=== PATIENT | male | born 1980 ===

== ENCOUNTER 2024-04-06 04:53 | Emergency (ER) | payer BC ==
[2024-04-06] MEDS ORDERED: ONDANSETRON 4 MG/2 ML VIAL ONE ×2 (05:15→08:48)
[2024-04-06] MEDS ORDERED: NA CHLORIDE 0.9% 1,000 ML ONE (05:15)
[2024-04-06] MEDS ORDERED: PANTOPRAZOLE 40 MG INJ ONE (05:32)
[2024-04-06] MEDS ORDERED: LORazepam 2 MG/ML VIAL ONE (05:33)
[2024-04-06 05:41] LABS: Absolute Basophils 0.1 K/uL (0-0.5); Absolute Lymphocytes (CBC) 3.2 K/uL (0.7-4.9); Absolute Monocytes 0.6 K/uL (0.1-1.3); Basophils % 0.8 % (0-1.3); Eosinophils % 0.4 % (0-4.4); Hematocrit 42.1 % (39.6-49.0); Lymphocytes % 45.9 % (15.3-44.8); MCH 30.7 pg (27.0-35.0); MCHC 33.1 g/dL (32.0-36.0); MCV 92.7 fL (80-100); MPV 8.3 fL (7.6-11.3); Monocytes % 8.6 % (3.3-12.3); Neutrophils % 44.3 % (41.7-73.7); Nucleated Red Blood Cells % 0.3 % (0-0); Platelets 244 thou/uL (152-406); RBC Red Blood Cell Count 4.54 M/uL (4.33-5.43); Red Cell Distribution Width 16.5 % (12.1-15.2)
[2024-04-06 06:03] LABS: Albumin 3.3 g/dL (3.4-5.0); Albumin/Globulin Ratio 0.7 (1.1-1.8); Anion Gap 18.6 mEq/L (5.0-15.0); Bilirubin Total 0.7 mg/dL (0.2-1.0); Globulin 4.5 g/dL (2.3-3.5); Potassium 3.6 mEq/L (3.5-5.1); Protein, Total 7.8 g/dL (6.4-8.2)
--- NOTE | 2024-04-06 06:42 | ER ---
Nurse's Notes [facility] Name: Alvin Cristobal Age: 43 yrs Sex: Male : 1980 Arrival Date: 04/06/2024 Time: 04:53 Bed 3 Private MD: Diagnosis: Hematemesis;Alcohol withdrawal Presentation: 04/06 05:21 Chief complaint: Patient states: vomiting blood since yesterday , drinks heavily, about iw 1 liter per day, last drink was an hour ago. Coronavirus screen: Client presents with at least one sign or symptom that may indicate coronavirus-19. Ebola Screen: No symptoms or risks identified at this time. Initial Sepsis Screen: Does the patient meet any 2 criteria? HR > 90 bpm. Does the patient have a suspected source of infection? No. Patient's initial sepsis screen is negative. Risk Assessment: Do you want to hurt yourself or someone else? Patient reports no desire to harm self or others. Onset of symptoms was April 05, 2024. 05:21 Method Of Arrival: Ambulatory iw 05:21 Acuity: DAIANA 2 iw Historical: - Allergies: 05:22 No Known Allergies; iw - Home Meds: 05:22 None [Active]; iw - PMHx: 05:22 None; iw - PSHx: 05:22 None; iw - Immunization history:: Adult Immunizations up to date. - Infectious Disease History:: Denies. - Social history:: Smoking status: Patient reports the use of cigarette tobacco products, Patient uses alcohol, on a daily basis. - Family history:: not pertinent. Screenin:20 [facility] ED Fall Risk Assessment (Adult) History of falling in the last 3 months, jj7 including since admission No falls in past 3 months (0 pts) Confusion or Disorientation No (0 pts) Intoxicated or Sedated No (0 pts) Impaired Gait Yes (1 pt) Mobility Assist Device Used No (0 pt) Altered Elimination No (0 pt) Score/Fall Risk Level 0 - 2 = Low Risk Oriented to surroundings, Maintained a safe environment, Educated pt \T\ family on fall prevention, incl call for assistance when getting out of bed, Assessed \T\ reinforced patient's understanding of fall precautions. Abuse screen: Denies injuries from another. Nutritional screening: No deficits noted. Tuberculosis screening: No symptoms or risk factors identified. Assessment: 05:21 General: Appears uncomfortable, ill, Behavior is cooperative. Pain: Complains of pain iw in chest. Neuro: Level of Consciousness is awake, alert, obeys commands, Oriented to person, place, time, situation, Moves all extremities. Full function. Cardiovascular: Reports chest pain, Patient's skin is warm and dry. Respiratory: Airway is patent Respiratory effort is even, unlabored, Respiratory pattern is regular, symmetrical. GI: Abdomen is non-distended, Reports nausea, vomiting. Derm: Skin is intact, is healthy with good turgor. Musculoskeletal: Range of motion: intact in all extremities. 05:30 Reassessment: Patient appears in no apparent distress at this time. pt reports nausea iw has improved. 05:49 Reassessment: pt placed on 2 L NC, pt sleeping, lights dimmed, no episodes of vomiting. iw 06:39 Reassessment: Patient appears in no apparent distress at this time. Patient and/or iw family updated on plan of care and expected duration. Pain level reassessed. Patient is alert, oriented x 3, equal unlabored respirations, skin warm/dry/pink. Dr. Carbajal at bedside to update pt on POC. 08:05 Reassessment: REPORT TO ELVIN CHAVARRIA AT [facility] FOR RM 401. bp 08:40 Reassessment: TRANSPORT AT B/S. bp Vital Signs: 05:21 BP 149 / 105; Pulse 133; Resp 19; Pulse Ox 95% on R/A; iw 05:46 BP 116 / 79; Pulse 122; Resp 18; Temp 97.6; Pulse Ox 91% on R/A; iw 05:49 Pulse Ox 96% on 2 lpm NC; iw 06:06 BP 111 / 78; Pulse 115; Resp 14; Pulse Ox 95% on 2 lpm NC; iw 08:01 BP 115 / 91; Pulse 106; Resp 13; Pulse Ox 96% ; aa5 ED Course: 04:57 Patient arrived in ED. gm2 05:01 Levi Carbajal MD is Attending Physician. rt 05:20 Patient has correct armband on for positive identification. Bed in low position. Call jj7 light in reach. Provided Education on: USE OF CALL MONTES. Client placed on continuous cardiac and pulse oximetry monitoring. NIBP monitoring applied. order processor on. Warm blanket given. 05:20 Inserted saline lock: 20 gauge in left antecubital area, using aseptic technique. Blood iw collected. Flushed with 10 mL NS. 05:21 Sharon Ly, RN is Primary Nurse. iw 05:22 Triage completed. iw 05:22 Arm band placed on. iw 06:25 CT Abd/Pelvis - IV Contrast Only In Process Unspecified. EDMS 06:27 initiated a transfer with Cecilia Barfield from the [facility]. eb 07:01 Report given to JOSE CHAVARRIA. jj7 07:12 Attending Physician role handed off by Levi Carbajal MD rn 07:12 Santana Burgos MD is Attending Physician. rn 07:13 connected the hospitalist content strategy lead for [facility] with Dr. Burgos for patient eb transfer consultation. 07:22 administrative approval given by Karla French Rn/ patient has been accepted to [facility] room 401/ Dr. Christian Romano has accepted the patient in transfer/ report to be called to [phone]. 07:35 Primary Nurse role handed off by Sharon Ly RN eb 07:36 Richard Copeland, RN is Primary Nurse. bp 08:05 No provider procedures requiring assistance completed. Patient transferred, IV remains bp in place. Administered Medications: 05:20 Drug: NS 0.9% IV 1000 ml IV at 1 bolus Per protocol; 1000 mL bolus Route: IV; Rate: 1 jj7 bolus; Site: left antecubital; 08:06 Follow up: IV Status: Completed infusion; IV Intake: 1000ml bp 05:20 Drug: Ondansetron IVP 4 mg IVP once; over 2 minutes Route: IVP; Site: left antecubital; jj7 05:41 Follow up: Response: Marked relief of symptoms; Nausea is decreased jj7 05:41 Drug: Pantoprazole IVP 80 mg IVP once Route: IVP; Site: left antecubital; jj7 06:17 Follow up: Response: Marked relief of symptoms jj7 05:41 Drug: Ativan IVP 2 mg IVP once Route: IVP; Site: left antecubital; jj7 06:17 Follow up: Response: Marked relief of symptoms jj7 08:52 Drug: Ondansetron IVP 4 mg IVP once; over 2 minutes Route: IVP; Site: left antecubital; aa5 08:52 Follow up: Response: No adverse reaction; Medication Administered at Departure aa5 Medication: 08:06 VIS not applicable for this client. bp Intake: 08:06 IV: 1000ml; Total: 1000ml. bp Outcome: 06:41 ER care complete, transfer ordered by . rt 08:05 Transferred by ground EMS to [facility], Transfer form completed. bp 08:05 Condition: stable 08:05 Instructed on the need for transfer, 08:52 Patient left the ED. aa5 Signatures: Dispatcher [employer] EDMS Sharon Ly RN RN iw Santana Burgos MD MD rn Calderon, Audri, RN RN aa5 Richard Copeland RN RN bp Botello, Elizabeth eb Johnson, Juwairiyah, RN RN jj7 Levi Carbajal MD MD rt Lisa De Los Santos 2 Corrections: (The following items were deleted from the chart) 05:50 05:20 Inserted saline lock: 20 gauge in right antecubital area, using aseptic iw technique. Blood collected. Flushed with 10 mL NS jj7 07:34 07:32 administrative approval given by Karla French Rn/ patient has been accepted to [facility] room 401/ Dr. Christian Romano has accepted the patient in transfer/ report to be called to [phone] 08:52 08:40 Patient left the ED. bp aa5
--- NOTE | 2024-04-06 06:42 | EDPHYS ---
Physician Documentation [facility] Name: Alvin Cristobal Age: 43 yrs Sex: Male : 1980 Arrival Date: 04/06/2024 Time: 04:53 Bed 3 Private MD: ED Physician Santana Burgos HPI: 04/06 06:13 This 43 yrs old Male presents to ER via Ambulatory with complaints of VOMITING BLOOD. rt 06:13 Patient who drinks a liter of vodka daily presents to the ED with nausea, vomiting. rt Patient reports vomiting dark blood, subsequently coffee-ground emesis. Denies hematochezia, melena. Denies abdominal pain. Does report some tremulousness, states last drink was several hours ago. Denies other acute complaints at this time, symptoms are moderate in severity, no other aggravating or elevating factors. Historical: - Allergies: 05:22 No Known Allergies; iw - Home Meds: 05:22 None [Active]; iw - PMHx: 05:22 None; iw - PSHx: 05:22 None; iw - Immunization history:: Adult Immunizations up to date. - Infectious Disease History:: Denies. - Social history:: Smoking status: Patient reports the use of cigarette tobacco products, Patient uses alcohol, on a daily basis. - Family history:: not pertinent. ROS: 06:13 Constitutional: Negative for fever, chills, and weight loss, Cardiovascular: Negative rt for chest pain, palpitations, and edema, Respiratory: Negative for shortness of breath, cough, wheezing, and pleuritic chest pain, MS/Extremity: Negative for injury and deformity, Skin: Negative for injury, rash, and discoloration, 06:13 Abdomen/GI: Positive for Coffee-ground emesis, nausea, vomiting, denies abdominal pain, Exam: 06:13 Constitutional: This is a well developed, well nourished patient who is awake, alert, rt and in no acute distress. Head/Face: Normocephalic, atraumatic. Chest/axilla: Normal chest wall appearance and motion. Nontender with no deformity. No lesions are appreciated. Cardiovascular: Regular rate and rhythm with a normal S1 and S2. No gallops, murmurs, or rubs. Normal PMI, no JVD. No pulse deficits. Respiratory: Lungs have equal breath sounds bilaterally, clear to auscultation and percussion. No rales, rhonchi or wheezes noted. No increased work of breathing, no retractions or nasal flaring. Skin: Warm, dry with normal turgor. Normal color with no rashes, no lesions, and no evidence of cellulitis. MS/ Extremity: Pulses equal, no cyanosis. Neurovascular intact. Full, normal range of motion. Neuro: Awake and alert, GCS 15, oriented to person, place, time, and situation. Cranial nerves II-XII grossly intact. Motor strength 5/5 in all extremities. Sensory grossly intact. Cerebellar exam normal. Normal gait. 06:13 ECG was reviewed by the Attending Physician. Vital Signs: 05:21 BP 149 / 105; Pulse 133; Resp 19; Pulse Ox 95% on R/A; iw 05:46 BP 116 / 79; Pulse 122; Resp 18; Temp 97.6; Pulse Ox 91% on R/A; iw 05:49 Pulse Ox 96% on 2 lpm NC; iw 06:06 BP 111 / 78; Pulse 115; Resp 14; Pulse Ox 95% on 2 lpm NC; iw 08:01 BP 115 / 91; Pulse 106; Resp 13; Pulse Ox 96% ; aa5 MDM: 05:20 Patient medically screened. rt 06:41 Differential Diagnosis Bleeding ulcer, variceal bleed, alcohol withdrawal. Data rt reviewed: vital signs. Consideration of Admission/Observation Escalation of care including admission/observation considered. Patient requires transfer for GI coverage. I considered the following discharge prescriptions or medication management in the emergency department Medications were administered in the Emergency Department. See MAR. Independent interpretation of the following test(s) in the Emergency Department CT Scan: My interpretation is No free air seen on my interpretation of CT scan images. Care significantly affected by the following Social Determinants of Health: Misuse of alcohol and/or drugs. Counseling: I had a detailed discussion with the patient and/or guardian regarding the historical points, exam findings, and any diagnostic results supporting the discharge/admit diagnosis, lab results, radiology results, the need to transfer to another facility. Response to treatment: the patient's symptoms have markedly improved after treatment. 07:15 ED course: Pt accepted for transfer to [facility] for hematemesis and mild ETOH rn withdrawal. . 04/06 05:28 Order name: CBC with Diff; Complete Time: 07:13 rt 04/06 05:28 Order name: CMP; Complete Time: 06:19 rt 04/06 05:28 Order name: Lipase; Complete Time: 06:19 rt 04/06 05:28 Order name: CPK; Complete Time: 06:19 rt 04/06 05:33 Order name: ETOH Level; Complete Time: 06:19 rt 04/06 05:44 Order name: CBC Smear Scan; Complete Time: 07:13 EDMS 04/06 05:28 Order name: CT Abd/Pelvis - IV Contrast Only; Complete Time: 06:49 rt 04/06 05:28 Order name: EKG; Complete Time: 05:29 rt 04/06 05:28 Order name: IV Saline Lock; Complete Time: 05:29 rt 04/06 05:28 Order name: Labs collected and sent; Complete Time: 05:29 rt 04/06 05:28 Order name: EKG - Nurse/Tech; Complete Time: 05:30 rt EC:13 Rate is 125 beats/min. Rhythm is regular, Sinus tachycardia with No ectopy. QRS [place] is rt Normal. [place] interval is normal. QRS interval is normal. QT interval is normal. No Q waves. T waves are Normal. No ST changes noted. Interpreted by me. Administered Medications: 05:20 Drug: NS 0.9% IV 1000 ml IV at 1 bolus Per protocol; 1000 mL bolus Route: IV; Rate: 1 jj7 bolus; Site: left antecubital; 08:06 Follow up: IV Status: Completed infusion; IV Intake: 1000ml bp 05:20 Drug: Ondansetron IVP 4 mg IVP once; over 2 minutes Route: IVP; Site: left antecubital; jj7 05:41 Follow up: Response: Marked relief of symptoms; Nausea is decreased jj7 05:41 Drug: Pantoprazole IVP 80 mg IVP once Route: IVP; Site: left antecubital; jj7 06:17 Follow up: Response: Marked relief of symptoms jj7 05:41 Drug: Ativan IVP 2 mg IVP once Route: IVP; Site: left antecubital; jj7 06:17 Follow up: Response: Marked relief of symptoms jj7 08:52 Drug: Ondansetron IVP 4 mg IVP once; over 2 minutes Route: IVP; Site: left antecubital; aa5 08:52 Follow up: Response: No adverse reaction; Medication Administered at Departure aa5 Disposition Summary: 04/06/24 06:41 Transfer Ordered Notes: Transfer Location: [facility] rt Reason: Higher level of care rt Condition: Fair rt Problem: new rt Symptoms: have improved rt Accepting Physician: (04/06/24 08:52) aa5 Diagnosis - Hematemesis rt - Alcohol withdrawal rt Forms: - Medication Reconciliation Form rt - SBAR form rt Critical care time excluding procedures: 06:41 Critical care time: Bedside Care: 30 minutes, Consultation: 5 minutes. Total time: 35 rt minutes Signatures: Dispatcher [employer] EDSharon Siu RN RN iw Nieto, Roman, MD MD rn Calderon, Audri, RN RN aa5 Richard Copeland RN RN bp Johnson, Juwairiyah, RN RN jj7 Levi Carbajal MD MD rt Corrections: (The following items were deleted from the chart) 05:29 05:29 CBC+H.LAB.BRZ ordered. EDMS EDMS 05:29 05:29 COMPREHENSIVE METABOLIC PANEL+C.LAB.BRZ ordered. EDMS EDMS 05:29 05:29 LIPASE+C.LAB.BRZ ordered. EDMS EDMS 05:29 05:29 CREATINE PHOSPHOKINASE+C.LAB.BRZ ordered. EDMS EDMS 08:40 06:41 rt bp 08:52 08:40 bp aa5
--- NOTE | 2024-04-06 06:48 | RAD REPORT ---
EXAMINATION: CT ABDOMEN AND PELVIS WITH CONTRAST CLINICAL INDICATION: Male, 43 years old. [facility] MAIN ABD PAIN IV ONLY Bed Name: 3 TECHNIQUE: CT abdomen and pelvis was performed, after the administration of IV contrast, as per [facility] protocol. Axial, sagittal and coronal reconstructions were obtained. One or more of the following dose reduction techniques were used: Automated exposure control, adjustment of the mA and/o r kV according to patient size, and/or iterative reconstruction. Unless otherwise specified, incidental findings do not require dedicated imaging follow-up. [id number]. COMPARISON: No prior exam. FINDINGS: LOWER CHEST: Moderate hiatal hernia. Lungs clear LIVER: Hepatic steatosis. GALLBLADDER/BILE DUCT: Cholelithiasis.?No CT evidence of acute cholecystitis. PANCREAS: No mass, ductal dilation, or jag-pancreatic fluid. SPLEEN: Normal size. No focal lesion. 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 KIDNEYS AND URETERS: Normal size and contour. No hydronephrosis. URINARY BLADDER: Normal contour. GASTROINTESTINAL TRACT: Stomach is non-dilated. Small bowel has normal course and caliber. No colonic wall thickening or pericolonic inflammatory changes. Normal appendix. PERITONEUM: No ascites. LYMPH NODES: No lymphadenopathy. ABDOMINAL AORTA AND OTHER VESSELS: Normal caliber aorta and IVC. REPRODUCTIVE ORGANS: No pathologic process MUSCULOSKELETAL: No acute or suspicious osseous abnormality. Fusion hardware across the pubic symphys is and left SI joint.. Intramedullary steven of the right femur. ADDITIONAL FINDINGS: None. IMPRESSION: No acute or significant abnormalities seen in the abdomen or pelvis. Hepatic steatosis. Cholelithiasi s without CT evidence of acute cholecystitis. Normal appendix.
[2024-04-06 07:12] LABS: Blood Morphology Comment NOT SEEN (NOT SEEN); Platelet Estimate ADEQ; White Blood Cell Scan OK (OK)
[2024-04-06 08:49] VITALS: TEMP 97.6
[2024-04-06 08:52] VITALS: BP 115/91; O2SAT 96
--- NOTE | 2024-04-07 12:50 | EKG ---
Test Date: 2024-04-06 Test Time: 05:28:44 Nitroglycerin Separator Operator: ALLIE MEASUREMENT RESULTS: Intervals: Rate: 125 W[place]: 154 QRSD: 84 QT: 312 QTc: 450 [place]: P: 56 W[place]: 154 QRS: 12 T: 62 INTERPRETIVE STATEMENTS: Sinus tachycardia Otherwise normal ECG No previous ECG available for comparison Electronically Signed On 04-07-24 12:47:16 CDT by Rush Callaway
== END 2024-04-06 08:52 | disposition short-term general hospital (02) ==
LOC: ER 04:53
DX: K92.0 Hematemesis (principal); F10.239 Alcohol dependence with withdrawal, unspecified; Z72.0 Tobacco use
CPT/HCPCS: 96361; 93005; 85025; 36415; 82550; 83690; 80053; 74177; 96375; 96374; 99285; 82077; Q9967; J2470; J2405 ×2; J7030